=== PATIENT | male | born 1985 | race African-American/Black ===

== ENCOUNTER 2021-04-17 01:04 | Emergency (ER) | payer SELFPAY ==
[~2021-04-17] VITALS: Ht 170.2 cm; Wt 79.5 kg
--- NOTE | 2021-04-17 01:50 | PHYS DOC ---
Past Medical History Past Medical History: No Pertinent History Past Surgical History: No Surgical History Smoking Status: Current Every Day Smoker Alcohol Use: None Drug Use: None General Adult EDM: Chief Complaint: DRUG ABUSE HPI: HPI: Patient is a 35 year old male with past medical history of drug abuse presents for medical clearance. Patient attempted to check into [facility] tonight for help with sobriety for drugs. Patient smoked PCP 1 hours prior to arrival. [facility] advised patient he needed to be more sober prior to checking into [facility]. EMS was called and patient was transported to ER. Patient denies HI or SI. Review of Systems: Review of Systems: Review of systems: Constitutional symptoms- No fever, no chills. Eyes- No Discharge, No Visual Loss Respiratory symptoms- No shortness of breath, No wheezing, No Dyspnea on Exertion Cardiovascular Systems; No chest pain, No Palpitations, No syncope Gastrointestinal symptoms: NO abdominal pain, no nausea, no vomiting or diarrhea. Genitourinary symptoms: No dysuria. Musculoskeletal symptoms: No back pain No extremity pain. NEUROLOGICAL Symptoms: No headache, no generalized weakness; No focal Weakness Skin: No rash. Heart Score: C/O Chest Pain: N/A Risk Factors: Risk Factors: DM, Current or recent (<one month) smoker, HTN, HLP, family history of CAD, obesity. Risk Scores: Score 0 - 3: 2.5% MACE over next 6 weeks - Discharge Home Score 4 - 6: 20.3% MACE over next 6 weeks - Admit for Clinical Observation Score 7 - 10: 72.7% MACE over next 6 weeks - Early Invasive Strategies Allergies: Allergies: Allergies Coded Allergies Type Severity Reaction Last Updated Verified No Known Drug Allergies 04/26/16 No Physical Exam: PE: General: alert, no acute distress. Skin: warm, dry and intact. HENT: bilateral external ears normal, oropharynx moist, nose normal. Head:: Normocephalic, atraumatic. Neck: Trachea midline. Eyes: EOMI, Normal conjunctiva, No drainage CARDIOVASCULAR: Regular rate and rhythm RESPIRATORY: No respiratory distress Back: Full range of motion. Skin: Warm, dry, no erythema, no rash. MUSCULOSKELETAL: Full range of motion of bilateral upper and lower extremities. GASTROINTESTINAL: Abdomen soft without rebound or guarding. NEUROLOGICAL: Alert and noted to person, place and time. No neurological deficits observed Psychiatric: Cooperative. Normal judgment EKG: EKG: [] Radiology/Procedures: Radiology/Procedures: [] Course & Med Decision Making: Course & Med Decision Making Pertinent Labs and Imaging studies reviewed. (See chart for details) [] Patient was evaluated for chief complaint. Patient had no complaints. Patient was advised he needs to be more sober. Prior to checking in to [facility]. 1 hour prior to arrival patient states he smoked PCP. Patient is alert and oriented. Patient was observed. He was discharged in medically cleared for [facility]. Miranda Disclaimer: Miranda Disclaimer: This electronic medical record was generated, in whole or in part, using a voice recognition dictation system. Departure Departure Impression: Primary Impression: Medical clearance for psychiatric admission Additional Impression: Substance abuse Disposition: HOME / SELF CARE / HOMELESS Condition: STABLE Referrals: NO PCP (PCP) Patient Instructions: Substance Abuse-Brief Scripts No Active Prescriptions or Reported Meds SABRINA CHRISTY DO Apr 17, 2021 01:50
[2021-04-17 06:29] VITALS: BP 151/87
== END 2021-04-17 06:36 | disposition home or self-care (01) ==
LOC: ER 01:04
DX: Z00.8 Encounter for other general examination (principal); F19.10 Other psychoactive substance abuse, uncomplicated; F17.200 Nicotine dependence, unspecified, uncomplicated
CPT/HCPCS: 99285-25